=== PATIENT | female | born 1995 | race Hispanic/Latino ===

== ENCOUNTER 2019-08-11 | Emergency (ER) | payer OTHER ==
[~2019-08-11] MED LIST: BENADRYL25 M1 PO; ELIMITE60 GM EX; ENGERIX-B10 MG/0.5 IM; NO HOME MEDS; OMNI-PAC300 MG OR; TUBERSOL5 MG/0.1 M ID; TYLENOL & COD12.5 ML OR; ZPAK OR
[2019-08-11] MEDS ORDERED: KEFLEX500 MG PO (23:12)
== END 2019-08-11 23:40 | disposition home or self-care (01) ==
DX: O23.593 Infection of other part of genital tract in pregnancy, third trimester (principal); Z3A.34 34 weeks gestation of pregnancy